=== PATIENT | female | born 1945 | race Caucasian/White ===

== ENCOUNTER 2018-01-23 12:45 | Inpatient (IN) | payer MEDICARE, MEDICAID ==
[~2018-01-23] VITALS: Ht 157.5 cm; Wt 44.0 kg
[2018-01-23 13:25] LABS: BASOPHILS % (AUTO) 0.2 % (0-1); EOSINOPHILS # (AUTO) 0.1 X10'3 (0-0.9); HEMATOCRIT 38.9 % (35.0-45.0); HEMOGLOBIN 13.4 g/dl (12.0-16.0); LYMPHOCYTES # (AUTO) 2.1 X10'3 (1.1-4.8); LYMPHOCYTES % (AUTO) 16.6 % (21-51); MEAN CORPUSCULAR HEMOGLOBIN 31.8 PG (27.0-31.0); MEAN CORPUSCULAR HGB CONC 34.5 % (33.0-36.5); MEAN PLATELET VOLUME 7.5 FL (7.4-10.4); MONOCYTES # (AUTO) 0.7 X10'3 (0-0.9); MONOCYTES % (AUTO) 5.7 % (2-12); NEUTROPHILS # (AUTO) 9.7 X10'3 (1.8-7.7); NEUTROPHILS % (AUTO) 76.5 % (42-75); PLATELET COUNT 357 X10'3 (140-440); RED BLOOD COUNT 4.23 X10'6 (4.20-5.60); RED CELL DISTRIBUTION WIDTH 14.8 % (11.5-14.5); WHITE BLOOD COUNT 12.6 X10'3 (4.5-11.0)
[2018-01-23] MEDS ORDERED: aspirin 81mg tab.chew PO ONE (13:35)
[2018-01-23] MEDS ORDERED: nitroGLYCERIN 0.2mg/hour patch TD ONE (13:35)
[2018-01-23] MEDS ORDERED: methylPREDNISolone sod succ 125mg/2ml vial IV ONE (13:35)
[2018-01-23] MEDS ORDERED: ipratropium/albuterol 3ml nebule NEB ONE (13:35)
[2018-01-23 13:36] LABS: INR 0.9 INR; PARTIAL THROMBOPLASTIN TIME 22 SECONDS (22-32); PROTHROMBIN TIME 9.7 SECONDS (9.0-12.0)
[2018-01-23 13:40] LABS: ALANINE AMINOTRANSFERASE 25 U/L (12-78); ALBUMIN 3.3 G/DL (3.4-5.0); ALBUMIN/GLOBULIN RATIO 1.1 (1.1-1.5); ALKALINE PHOSPHATASE 93 IU/L (46-116); ANION GAP 8 (8-16); ASPARTATE AMINO TRANSFERASE 26 U/L (10-37); BILIRUBIN,TOTAL 0.3 MG/DL (0.1-1.0); BLOOD UREA NITROGEN 15 MG/DL (7-18); BUN/CREATININE RATIO 21.1 (6.6-38.0); CALCIUM 8.9 MG/DL (8.5-10.1); CHLORIDE 108 MMOL/L (99-107); CREATININE 0.71 MG/DL (0.40-0.90); GLUCOSE 98 MG/DL (70-104); POTASSIUM 3.6 MMOL/L (3.5-5.1); SODIUM 143 MMOL/L (135-145); TOTAL CARBON DIOXIDE 26.6 MMOL/L (24-32); TOTAL PROTEIN 6.4 G/DL (6.4-8.2); eGFR 81 ML/MIN
[2018-01-23] MEDS ORDERED: HYDROcodone/acetaminophen 10/325mg tab PO PRN (14:50)
[2018-01-23] MEDS ORDERED: acetaminophen 325mg tablet PO PRN ×2 (14:50)
[2018-01-23] MEDS ORDERED: nitroGLYCERIN 0.4mg SUBLingual tab SL PRN (14:50)
[2018-01-23] MEDS ORDERED: mag hydrox/Alum hydrox/simeth 30ml oral suspension PO PRN (14:50)
[2018-01-23] MEDS ORDERED: ondansetron/PF 4mg/2ml inj IV PRN (14:50)
[2018-01-23] MEDS ORDERED: magnesium hydroxide 30ml (MOM) UD suspension PO PRN (14:50)
[2018-01-23] MEDS ORDERED: morphine 4 MG/ML inj SYRINge IV PRN ×2 (14:50)
[2018-01-23] MEDS ORDERED: HYDROcodone/acetaminophen 5mg/325mg tablet PO PRN (14:50)
[2018-01-23 16:15] VITALS: BP 154/81
[2018-01-23] MEDS ORDERED: ALBU2.5V12 NEB (16:44)
[2018-01-23] MEDS ORDERED: OMEP40CA37 PO (16:44)
[2018-01-23] MEDS ORDERED: MONT10TA24 PO (16:44)
[2018-01-23] MEDS ORDERED: SERT25TA5 PO (16:44)
[2018-01-23] MEDS ORDERED: ASPI-611 PO (16:44)
[2018-01-23] MEDS ORDERED: TIOT18CA3 INH (16:44)
[2018-01-23] MEDS ORDERED: BUDE10.2 INH (16:44)
[2018-01-23] MEDS ORDERED: ALPR-163 PO (16:44)
[2018-01-23] MEDS ORDERED: pantoprazole 40mg Tablet.DR PO PRN (17:30)
[2018-01-23] MEDS ORDERED: ALPRAZolam 0.5mg tablet PO PRN (17:30)
[2018-01-23] MEDS ORDERED: enoxaparin 40mg/0.4ml syringe SUBCUT SCH (17:35)
[2018-01-23] MEDS: guaiFENesin ER 600mg tablet PO SCH ×2 (17:48→20:00)
[2018-01-23 19:30] VITALS: BP 134/71
[2018-01-23] MEDS: budesonide 0.5mg/2ml UD nebule IH SCH (20:08)
[2018-01-23] MEDS: albuterol 2.5 MG/3 ML nebule NEB SCH (20:09)
[2018-01-23] MEDS ORDERED: enoxaparin 40mg/0.4ml syringe SUBCUT ONE (20:10)
[2018-01-23] MEDS: enoxaparin 40mg/0.4ml syringe SUBCUT SCH (20:15)
[2018-01-24] VITALS (11 sets, daily range): BP systolic 92–143; BP diastolic 53–78
[2018-01-24] MEDS: methylPREDNISolone sod succ 125mg/2ml vial IV SCH ×3 (00:31→15:31)
[2018-01-24 01:37] LABS: ALBUMIN 2.9 G/DL (3.4-5.0); ANION GAP 6 (8-16); BLOOD UREA NITROGEN 18 MG/DL (7-18); BUN/CREATININE RATIO 22.8 (6.6-38.0); CALCIUM 8.5 MG/DL (8.5-10.1); CHLORIDE 107 MMOL/L (99-107); CHOL/HDL RATIO 2.5 (0.00-4.99); CHOLESTEROL 195 MG/DL (0-200); CREATININE 0.79 MG/DL (0.40-0.90); GLUCOSE 129 MG/DL (70-104); HDL CHOLESTEROL 78 MG/DL (35-60); LDL CHOLESTEROL 102 MG/DL (50-100); POTASSIUM 4.4 MMOL/L (3.5-5.1); SODIUM 139 MMOL/L (135-145); TOTAL CARBON DIOXIDE 25.9 MMOL/L (24-32); TRIGLYCERIDES 86 MG/DL (20-135); eGFR 71 ML/MIN
[2018-01-24 02:18] LABS: BASOPHILS % (AUTO) 0 % (0-1); EOSINOPHILS # (AUTO) 0.1 X10'3 (0-0.9); EOSINOPHILS % (AUTO) 1.1 % (0-6); HEMATOCRIT 37.1 % (35.0-45.0); HEMOGLOBIN 12.4 g/dl (12.0-16.0); LYMPHOCYTES # (AUTO) 0.4 X10'3 (1.1-4.8); LYMPHOCYTES % (AUTO) 4.1 % (21-51); MEAN CORPUSCULAR HEMOGLOBIN 31.4 PG (27.0-31.0); MEAN CORPUSCULAR HGB CONC 33.4 % (33.0-36.5); MEAN CORPUSCULAR VOLUME 93.8 FL (78-98); MEAN PLATELET VOLUME 8.3 FL (7.4-10.4); MONOCYTES # (AUTO) 0.1 X10'3 (0-0.9); MONOCYTES % (AUTO) 0.8 % (2-12); NEUTROPHILS # (AUTO) 9.3 X10'3 (1.8-7.7); PLATELET COUNT 317 X10'3 (140-440); RED BLOOD COUNT 3.96 X10'6 (4.20-5.60); RED CELL DISTRIBUTION WIDTH 14.8 % (11.5-14.5); WHITE BLOOD COUNT 9.9 X10'3 (4.5-11.0)
[2018-01-24] MEDS: albuterol 2.5 MG/3 ML nebule NEB PRN ×2 (02:54→07:51)
[2018-01-24] MEDS: ipratropium 0.5 MG/2.5ML nebule NEB SCH ×4 (07:34→19:42)
[2018-01-24] MEDS: albuterol 2.5 MG/3 ML nebule NEB SCH ×4 (07:34→19:42)
[2018-01-24] MEDS: budesonide 0.5mg/2ml UD nebule IH SCH ×2 (07:35→19:41)
[2018-01-24] MEDS ORDERED: enoxaparin 40mg/0.4ml syringe SUBCUT SCH (08:00)
[2018-01-24] MEDS ORDERED: aspirin 81mg tab.chew PO SCH (08:00)
[2018-01-24] MEDS: aspirin 81mg tablet.DR PO SCH (08:16)
[2018-01-24] MEDS: guaiFENesin ER 600mg tablet PO SCH ×2 (08:16→20:34)
[2018-01-24] MEDS: sertraline 25mg tablet PO SCH (08:17)
[2018-01-24] MEDS: enoxaparin 40mg/0.4ml syringe SUBCUT SCH (08:17)
[2018-01-24] MEDS: montelukast 10mg tablet PO SCH (08:17)
[2018-01-24] MEDS ORDERED: potassium cl 20mEq in 1/2 NS 1,000 ML IV SCH (11:35)
[2018-01-24] MEDS: carvedilol 6.25mg tablet PO SCH ×2 (13:02→20:34)
[2018-01-24] MEDS ORDERED: midazolam 2 mg/2 ml injection ONE (17:59)
[2018-01-24] MEDS ORDERED: fentaNYL/PF 50MCG/1 ML 2ML syringe ONE (17:59)
[2018-01-24] MEDS ORDERED: iohexol 350MG/ML 100ml bottle IV ONE (17:59)
[2018-01-24] MEDS ORDERED: LIDOcaine 1% w/EPI 1:100,000 30ml vial (MDV) ONE (17:59)
[2018-01-24] MEDS ORDERED: heparin 1,000 UNITS/NS 500ml 500 ML ONE (18:50)
[2018-01-24] MEDS: atorvastatin 20mg tablet PO SCH (20:34)
[2018-01-24] MEDS ORDERED: lisinopril 5mg tablet PO SCH (21:00)
[2018-01-25] VITALS: BP 107/61
[2018-01-25] MEDS: methylPREDNISolone sod succ 125mg/2ml vial IV SCH ×2 (00:06→08:02)
[2018-01-25] MEDS: ipratropium 0.5 MG/2.5ML nebule NEB SCH ×2 (02:52→07:47)
[2018-01-25 04:00] VITALS: BP 126/63
[2018-01-25 05:21] LABS: BASOPHILS % (AUTO) 0 % (0-1); EOSINOPHILS % (AUTO) 0 % (0-6); HEMATOCRIT 39.2 % (35.0-45.0); HEMOGLOBIN 13.4 g/dl (12.0-16.0); LYMPHOCYTES # (AUTO) 0.3 X10'3 (1.1-4.8); LYMPHOCYTES % (AUTO) 1.7 % (21-51); MEAN CORPUSCULAR HEMOGLOBIN 31.7 PG (27.0-31.0); MEAN CORPUSCULAR HGB CONC 34.2 % (33.0-36.5); MEAN CORPUSCULAR VOLUME 92.7 FL (78-98); MEAN PLATELET VOLUME 8.4 FL (7.4-10.4); MONOCYTES # (AUTO) 0.2 X10'3 (0-0.9); MONOCYTES % (AUTO) 1.2 % (2-12); NEUTROPHILS # (AUTO) 16.5 X10'3 (1.8-7.7); NEUTROPHILS % (AUTO) 97.1 % (42-75); PLATELET COUNT 331 X10'3 (140-440); RED BLOOD COUNT 4.23 X10'6 (4.20-5.60); RED CELL DISTRIBUTION WIDTH 14.9 % (11.5-14.5)
[2018-01-25 05:46] LABS: ALBUMIN 2.8 G/DL (3.4-5.0); ANION GAP 8 (8-16); BLOOD UREA NITROGEN 32 MG/DL (7-18); BUN/CREATININE RATIO 48.5 (6.6-38.0); CHLORIDE 104 MMOL/L (99-107); CREATININE 0.66 MG/DL (0.40-0.90); GLUCOSE 122 MG/DL (70-104); POTASSIUM 4.6 MMOL/L (3.5-5.1); SODIUM 139 MMOL/L (135-145); TOTAL CARBON DIOXIDE 27.3 MMOL/L (24-32); eGFR 88 ML/MIN
[2018-01-25] MEDS: albuterol 2.5 MG/3 ML nebule NEB SCH (07:45)
[2018-01-25] MEDS: budesonide 0.5mg/2ml UD nebule IH SCH (07:47)
[2018-01-25 08:00] VITALS: BP 122/55
[2018-01-25] MEDS: guaiFENesin ER 600mg tablet PO SCH (08:03)
[2018-01-25] MEDS: aspirin 81mg tablet.DR PO SCH (08:03)
[2018-01-25] MEDS: atorvastatin 20mg tablet PO SCH (08:03)
[2018-01-25] MEDS: carvedilol 6.25mg tablet PO SCH (08:03)
[2018-01-25] MEDS: sertraline 25mg tablet PO SCH (08:03)
[2018-01-25] MEDS: montelukast 10mg tablet PO SCH (08:03)
[2018-01-25] MEDS ORDERED: CARV6.253 PO (10:37)
[2018-01-25] MEDS ORDERED: LISI-604 PO (10:37)
[2018-01-25] MEDS ORDERED: ATOR20TA66 PO (10:37)
== END 2018-01-25 11:50 | disposition home or self-care (01) | DRG 281 ==
LOC: ER 12:46 → ED HOLD 14:50 → OBSVTOIN 14:50 → EDBEDREQ 15:31 → SUR 3N 16:19
PROVIDERS: ADMIT Internal Medicine; ATTEND Internal Medicine
PROC: 4A023N7 Measurement of Cardiac Sampling and Pressure, Left Heart, Percutaneous Approach (ICD-10-PCS; principal; 2018-01-24)
PROC: B2111ZZ Fluoroscopy of Multiple Coronary Arteries using Low Osmolar Contrast (ICD-10-PCS; 2018-01-24)
PROC: B2151ZZ Fluoroscopy of Left Heart using Low Osmolar Contrast (ICD-10-PCS; 2018-01-24)
DX: I21.4 Non-ST elevation (NSTEMI) myocardial infarction (principal); J96.11 Chronic respiratory failure with hypoxia; J44.1 Chronic obstructive pulmonary disease with (acute) exacerbation; I42.8 Other cardiomyopathies; F17.200 Nicotine dependence, unspecified, uncomplicated; F32.9 Major depressive disorder, single episode, unspecified; F41.9 Anxiety disorder, unspecified; K21.9 Gastro-esophageal reflux disease without esophagitis; Z90.49 Acquired absence of other specified parts of digestive tract; Z99.81 Dependence on supplemental oxygen; Z88.2 Allergy status to sulfonamides; Z79.899 Other long term (current) drug therapy; Z79.82 Long term (current) use of aspirin; Z86.12 Personal history of poliomyelitis; Z83.3 Family history of diabetes mellitus; Z82.49 Family history of ischemic heart disease and other diseases of the circulatory system; Z71.6 Tobacco abuse counseling
CPT/HCPCS: 36415; 71045; 80048; 80053; 80061; 83880; 84484; 85025; 85610; 85730; 87040; 87070; 93005; 93306; 93458; 94640; 94760; 96374; 99152; 99285; A4620; A6257; C1769; J1644; J1650; J2250; J2930; J3010; J3490; J7030; J7626; Q9967